=== PATIENT | male | born 1965 | race Caucasian/White ===

== ENCOUNTER 2016-09-23 04:30 | Emergency (ER) | payer BC ==
[~2016-09-23] VITALS: Ht 175.3 cm; Wt 87.0 kg
[2016-09-23 04:30] VITALS: Ht 175.3 cm; Wt 87.0 kg
[~2016-09-23 04:30] MED LIST: ALBU8.5H INH; ASPI-1116 PO; ATOR40TA PO; CARV6.25 PO; LEVO50TA4 PO; LISI5TAB PO; NITR0.4T SL; OMEP10CA4 PO; ONDA4TAB7 PO; TICA90TA PO
--- OUTSIDE RECORDS SUMMARY | 2016-09-23 04:34 | XMS REPORT | Continuity of Care Document ---
Demographics Preferred Language Unknown Marital Status Unknown Catholic Affiliation Unknown Race Unknown Ethnic Group Unknown Author Author [facility] Organization [facility] Address Unknown Phone Unavailable Allergies Active Description Code Type Severity Reaction Onset Reported/Identified Relationship to Patient Clinical Status Yes No Known Drug Allergies Drug Allergy N/A N/A 01/29/2013 Medications Problems Date Dx Coded Attending Type Code Diagnosis Diagnosed By 05/12/2012 D 493.90 ASTHMA, UNSPECIFIED 01/29/2013 Jacob Lorenz MD Final 305.1 TOBACCO USE DISORDER 01/29/2013 Jacob Lorenz MD 922.1 CONTUSION OF CHEST WALL 01/29/2013 Jacob Lorenz MD Admitting 959.11 CHEST WALL INJURY NEC 01/29/2013 Jacob Lorenz MD External E849.0 HOME ACCIDENTS 01/29/2013 Jacob Lorenz MD External E888.1 FALL STRIKE OBJECT NEC Procedures Code [place] [address] EMERGENCY DEPT VISIT BERNADETTE GONSALES MD 05/12/2012 Results Encounters ACCT No. Visit Date/Time Discharge Status Pt. Type Provider Facility Loc./Unit Complaint [id number] 05/12/2012 12:00:00 Document Registration
--- OUTSIDE RECORDS SUMMARY | 2016-09-23 04:34 | XMS REPORT | Continuity of Care Document ---
Author Author [facility] Organization [facility] Address Unknown Phone Unavailable Support Name Relationship Address Phone JAMAR BAILEY MD Caregiver [address] [place] [address] [place] [address] [employer] Next Of Kin [address] [place], [place] [id number] Insurance Providers Payer Name Policy Number Subscriber Name Relationship [facility] [id number] Christopher Gant 18 Self Problems Medical Problems Problem Onset Date Status Hypothyroid Unknown Active Atypical chest pain Unknown Active Medications Medication Dose Route Sig Days/Qty Instructions Order Date Discontinued Date Status [Otc Heartburn Pill] PO DAILY 11/18/12 Active Albuterol Sulfate 2 Puff INH Every 6 Hours 01/31/14 Active Albuterol Sulfate 2 Puff INH Every 6 Hours PRN SHORTNESS OF AIR 1 Qty 01/31/14 Active Prednisone 20 Mg PO DIRECTED 18 Qty Take 3 pills for 3 days THEN, Active Social History Social History Problem Response Recorded Date/Time Smoking Status Current every day smoker 01/31/2014 9:32am Chewing Tobacco Status No 11/18/2012 4:40am Hx Substance Use No 01/31/2014 9:32am Hx Alcohol Use Yes 01/31/2014 9:32am Query Response Start Date Stop Date Smoking Status Current every day smoker Hospital Discharge Instructions No hospital discharge instructions. Plan of Care No plan of care. Functional Status Query Response Date Recorded Physical Hygiene Self January 31, 2014 9:32am Disabilities None January 31, 2014 9:32am Devices Used None January 31, 2014 9:32am Dressing Self January 31, 2014 9:32am Ambulation Self January 31, 2014 9:32am Diet Self January 31, 2014 9:32am Mental Status Alert January 31, 2014 10:21am Disabilities None January 31, 2014 9:32am Devices Used None January 31, 2014 9:32am Physical Hygiene Self January 31, 2014 9:32am Dressing Self January 31, 2014 9:32am Ambulation Self January 31, 2014 9:32am Diet Self January 31, 2014 9:32am Allergies, Adverse Reactions, Alerts Allergen Type Severity Reaction Status Last Updated Morphine Allergy Unknown RASH Active 01/31/14 Immunizations No immunization records. Vital Signs Acute Vital Signs Vital Response Date/Time Temperature (Fahrenheit) 97.4 deg F (96.8 - 99.1) Temperature (Calculated Celsius) 36.41871 degrees C (36.0 - 37.3) Pulse Rate (adult) 77 bpm (60 - 100) Respiratory Rate 18 breaths/min (10 - 20) O2 Sat by Pulse Oximetry 98 % (90 - 100) Blood Pressure 133/91 mm Hg Height 5 ft 7 in Weight 198 lb Body Mass Index 31.0 kg/m^2 Results Test Source Date Result Interp. Ref. Range Comments Activated Partial Thromboplast Time January 31, 2014 9:21am 29.7 SEC N 24-36 Alanine Aminotransferase (ALT/SGPT) January 31, 2014 9:21am 39 U/L N 21-72 Albumin January 31, 2014 9:21am 4.5 G/DL N 3.5-5.0 Albumin/Globulin Ratio January 31, 2014 9:21am 1.3 RATIO N 1.1-2.2 Alkaline Phosphatase January 31, 2014 9:21am 97 U/L N 38-126 Anion Gap January 31, 2014 9:21am 12 MEQ/L N 5-15 Aspartate Amino Transf (AST/SGOT) January 31, 2014 9:21am 32 U/L N 17- 59 BUN/Creatinine Ratio January 31, 2014 9:21am 18 RATIO N 6-26 Basophils # (Auto) January 31, 2014 9:21am 0.1 T/MM3 N 0-0.2 Basophils (%) (Auto) January 31, 2014 9:21am 1.1 % N 0-2 Blood Urea Nitrogen January 31, 2014 9:21am 16.0 MG/DL N 9-20 Calcium Level January 31, 2014 9:21am 9.6 MG/DL N 8.4-10.2 Calculated Osmolality January 31, 2014 9:21am 276 MOSM/KG N 261-280 Carbon Dioxide Level January 31, 2014 9:21am 27 MEQ/L N 22-30 Chloride Level January 31, 2014 9:21am 104 MEQ/L N 98-107 Conjugated Bilirubin September 18, 2011 7:25am 0.00 MG/DL N 0.00-0.30 Creatinine January 31, 2014 9:21am 0.9 MG/DL N 0.8-1.5 Eosinophils # (Auto) January 31, 2014 9:21am 0.3 T/MM3 N 0-0.5 Eosinophils (%) (Auto) January 31, 2014 9:21am 3.1 % N 0-4 Globulin January 31, 2014 9:21am 3.6 G/DL N 2.4-3.6 Glucose Level January 31, 2014 9:21am 91 MG/DL N 75-110 Hematocrit January 31, 2014 9:21am 45.1 % N 41-53 Hemoglobin January 31, 2014 9:21am 14.7 GM/DL N 13.5-17.5 Lymphocytes # (Auto) January 31, 2014 9:21am 1.9 T/MM3 N 1-4.8 Lymphocytes (%) (Auto) January 31, 2014 9:21am 17.2 % L 23-45 Magnesium Level January 31, 2014 9:21am 2.0 MG/DL N 1.6-2.3 Mean Corpuscular Hemoglobin January 31, 2014 9:21am 28.2 UUG N 26-34 Mean Corpuscular Hemoglobin Concent January 31, 2014 9:21am 32.6 GM/DL N 31-37 Mean Corpuscular Volume January 31, 2014 9:21am 86.4 UM3 N 80-100 Mean Platelet Volume January 31, 2014 9:21am 9.3 UM3 L 9.4-12.4 Monocytes # (Auto) January 31, 2014 9:21am 0.6 T/MM3 N 0-0.8 Monocytes (%) (Auto) January 31, 2014 9:21am 5.8 % N 0-9.0 Neutrophils # (Auto) January 31, 2014 9:21am 7.8 T/MM3 H 1.8-7.7 Neutrophils (%) (Auto) January 31, 2014 9:21am 72.2 % H 33-66 Platelet Count January 31, 2014 9:21am 371 T/MM3 N 130-400 Potassium Level January 31, 2014 9:21am 4.1 MEQ/L N 3.6-5 Prothromb Time International Ratio January 31, 2014 9:21am 0.90 N 0.81 -1.09 THERAPUTIC RANGE=2.00-3.00 FOR ANTI-THROMBOSIS THERAPUTIC RANGE=2.50- 3.50 FOR IMPLANTED VALVE RDW Standard Deviation January 31, 2014 9:21am 50.9 FL H 36.9-50.2 Red Blood Count January 31, 2014 9:21am 5.22 M/MM3 N 4.50-5.90 Sodium Level January 31, 2014 9:21am 143 MEQ/L N 134-144 Thyroid Stimulating Hormone (TSH) January 31, 2014 9:21am 57.70 MIU/L H 0.47-4.68 Total Bilirubin January 31, 2014 9:21am 0.70 MG/DL N 0.20-1.30 Total Protein January 31, 2014 9:21am 8.1 G/DL N 6.3-8.2 Troponin I January 31, 2014 9:21am < 0.012 ng/ml 0-0.12 Unconjugated Bilirubin September 18, 2011 7:25am 0.20 MG/DL N 0.00-1.10 White Blood Count January 31, 2014 9:21am 10.8 T/MM3 N 4.5-11.0 Chemistry Specimen Hemolysis January 31, 2014 9:21am 21 N 0-25 0-25: No Hemolysis.26-70: Slight Hemolysis - can falsely elevate K and Urine Protein. 71-285: Moderate Hemolysis - can falsely elevate K, Troponin I, CA 19-9, PTH, CSF GLucose, and Urine Protein, and can falsely decrease Phenytoin. 286-999: Gross Hemolysis - can falsely elevate K, Troponin I, CA 19-9, PTH, CSF Glucose, and Urine Protine, and can falsely decrease Phenytoin. Recommend specimen recollection. Turbidity January 31, 2014 9:21am < 20 0-20 Glomerular Filtration Rate Calc January 31, 2014 9:21am 90 - Immature Granulocyte # (Auto) January 31, 2014 9:21am 0.07 T/MM3 H 0.00-0.03 Immature Granulocyte % (Auto) January 31, 2014 9:21am 0.6 % H 0.0-0.5 Icterus Index January 31, 2014 9:21am < 2 0-7 SC-Kvf-D-Type Natriuretic Peptide January 31, 2014 9:21am 26 PG/ML N 0 -175 Rule in cut points: <50 years old=450; 50-75 years old=900; >75 years old=1800; When utilizing ProBNP rule-in cut points, adjustment for impaired renal function is typically not required. Name: CHRISTOPHER GANT Unit #: [id number] : 1965 Sex: M Loc / Svc: ED DOS: 01/31/14 Signed Report #: [id number] DIAGNOSTIC IMAGING REPORT TYPE OF EXAM: CHEST 1 VIEW Dictated By: AMANDO DICKSON MD INDICATION: ITS.REASON: chest pain COMPARISON: 09/18/11 CHEST 1 VIEW: There are monitoring leads. Heart size is within a normal range. The lungs are normally expanded. Minor lower lobe fibrosis is stable. There is no evidence of a pleural effusion. IMPRESSION: No evidence of acute disease. . Procedures No known history of procedures. Encounters Encounter Location Date/Time Departed Emergency Room [facility] 01/31/14 9:06am Recent Diagnosis
--- OUTSIDE RECORDS SUMMARY | 2016-09-23 04:34 | XMS REPORT | Continuity of Care Document ---
Author Author [facility] Organization [facility] Address Unknown Phone Unavailable Support Name Relationship Address Phone [employer] Next Of Kin [address] [place] [address] Unavailable Insurance Providers Payer Name Policy Number Subscriber Name Relationship Self Pay Serene Williamson 18 Self Problems No Known Problems or Medical conditions. Family History History Response Recorded Date/Time HX of Orthopedic Surgeries Y RIGHT ACL REPAIR 11/18/12 4:40am Hx Angina Y 09/18/11 7:52am Hx Congestive Heart Failure N 09/18/11 7:52am Hx Heart Attack Y PER PT 11/18/12 4:40am Hx Hypertension N 09/18/11 7:52am Hx Cancer N 11/18/12 4:40am Social History History Response Recorded Date/Time Smoking Status Current every day smoker 11/18/12 4:40am Chewing Tobacco Status N 11/18/12 4:40am Hx Substance Use N 11/18/12 4:40am Hx Alcohol Use Y 11/18/12 4:40am Allergies, Adverse Reactions, Alerts Allergen Type Severity Reaction Last Updated morphine Allergy Unknown RASH 11/18/12 Medications Medication Dose Units Route Sig Qty Days [Otc Heartburn Pill] PO DAILY Response Recorded Date/Time Status not known Unknown Results Test Date Result Interp. Ref. Range Activated Partial Thromboplast Time September 18, 2011 7:25am 30.3 SEC N 24-36 Alanine Aminotransferase (ALT/SGPT) September 18, 2011 7:25am 27 U/L N 21-72 Albumin September 18, 2011 7:25am 4.6 G/DL N 3.5-5.0 Albumin/Globulin Ratio September 18, 2011 7:25am 1.4 RATIO N 1.1-2.2 Alkaline Phosphatase September 18, 2011 7:25am 87 U/L N 38-126 Anion Gap September 18, 2011 7:25am 12 MEQ/L N 5-15 Aspartate Amino Transf (AST/SGOT) September 18, 2011 7:25am 25 U/L N 17-59 BUN/Creatinine Ratio September 18, 2011 7:25am 20 RATIO N 6-26 Basophils # (Auto) September 18, 2011 7:25am 0.1 T/MM3 N 0-0.2 Basophils (%) (Auto) September 18, 2011 7:25am 1.0 % N 0-2 Blood Urea Nitrogen September 18, 2011 7:25am 14.0 MG/DL N 9-20 Calcium Level September 18, 2011 7:25am 9.3 MG/DL N 8.4-10.2 Calculated Osmolality September 18, 2011 7:25am 284 MOSM/KG H 261-280 Carbon Dioxide Level September 18, 2011 7:25am 27 MEQ/L N 22-30 Chloride Level September 18, 2011 7:25am 107 MEQ/L N 98-107 Conjugated Bilirubin September 18, 2011 7:25am 0.00 MG/DL N 0.00-0.30 Creatinine September 18, 2011 7:25am 0.7 MG/DL L 0.8-1.5 Eosinophils # (Auto) September 18, 2011 7:25am 0.2 T/MM3 N 0-0.5 Eosinophils (%) (Auto) September 18, 2011 7:25am 1.8 % N 0-4 Globulin September 18, 2011 7:25am 3.4 G/DL N 2.4-3.6 Glucose Level September 18, 2011 7:25am 131 MG/DL H 75-110 Hematocrit September 18, 2011 7:25am 48.5 % N 41-53 Hemoglobin September 18, 2011 7:25am 15.8 GM/DL N 13.5-17.5 Lymphocytes # (Auto) September 18, 2011 7:25am 1.9 T/MM3 N 1-4.8 Lymphocytes (%) (Auto) September 18, 2011 7:25am 17.6 % L 23-45 Mean Corpuscular Hemoglobin September 18, 2011 7:25am 28.5 UUG N 26-34 Mean Corpuscular Hemoglobin Concent September 18, 2011 7:25am 32.6 GM/DL N 31-37 Mean Corpuscular Volume September 18, 2011 7:25am 87.4 UM3 N 80-100 Mean Platelet Volume September 18, 2011 7:25am 9.8 UM3 N 9.4-12.4 Monocytes # (Auto) September 18, 2011 7:25am 0.9 T/MM3 H 0-0.8 Monocytes (%) (Auto) September 18, 2011 7:25am 8.0 % N 0-9.0 Neutrophils # (Auto) September 18, 2011 7:25am 7.5 T/MM3 N 1.8-7.7 Neutrophils (%) (Auto) September 18, 2011 7:25am 71.0 % H 33-66 Platelet Count September 18, 2011 7:25am 344 T/MM3 N 130-400 Potassium Level September 18, 2011 7:25am 3.7 MEQ/L N 3.6-5 Prothromb Time International Ratio September 18, 2011 7:25am 0.92 N 0.86-1.10 RDW Standard Deviation September 18, 2011 7:25am 47.8 FL N 36.9-50.2 Red Blood Count September 18, 2011 7:25am 5.55 M/MM3 N 4.50-5.90 Sodium Level September 18, 2011 7:25am 146 MEQ/L H 134-144 Total Bilirubin September 18, 2011 7:25am 0.50 MG/DL N 0.20-1.30 Total Protein September 18, 2011 7:25am 8.0 G/DL N 6.3-8.2 Troponin I September 18, 2011 7:25am < 0.012 ng/ml 0-0.12 Unconjugated Bilirubin September 18, 2011 7:25am 0.20 MG/DL N 0.00-1.10 White Blood Count September 18, 2011 7:25am 10.6 T/MM3 N 4.5-11.0 Glomerular Filtration Rate Calc September 18, 2011 7:25am 121 - Immature Granulocyte # (Auto) September 18, 2011 7:25am 0.06 T/MM3 H 0.00-0.03 Immature Granulocyte % (Auto) September 18, 2011 7:25am 0.6 % H 0.0-0.5 CI-Pwb-W-Type Natriuretic Peptide September 18, 2011 7:25am 20 PG/ML N 0-175 Encounters Encounter Location Date/Time Departed Emergency Room [facility] 11/18/12 4:32am
--- NOTE | 2016-09-23 04:35 | NUR ---
EKG EKG SHOWING STEMI. DR ROWLAND IS GIVEN EKG
--- OUTSIDE RECORDS SUMMARY | 2016-09-23 04:35 | XMS REPORT | Continuity of Care Document ---
Author Author [facility] Organization [facility] Address Unknown Phone Unavailable Support Name Relationship Address Phone SANTO KHAN MD Caregiver [address] [place] [address] [place] [address] [employer] Next Of Kin [address] [place] [address] Insurance Providers Payer Name Policy Number Subscriber Name Relationship [facility] [id number] Christopher Williamson 18 Self Problems Medical Problems Problem Onset Date Status Hypothyroid Unknown Active Atypical chest pain Unknown Active Hypothyroid Unknown Active Contusion of left hand Unknown Active Contusion of left hand Unknown Active Medications Medication Dose Route Sig Days/Qty Instructions Order Date Discontinued Date Status [Otc Heartburn Pill] PO DAILY 11/18/12 08/01/14 Discontinued Albuterol Sulfate 2 Puff INH Every 6 Hours 01/31/14 Active Albuterol Sulfate 2 Puff INH Every 6 Hours PRN SHORTNESS OF AIR 1 Qty 01/31/14 08/01/14 Discontinued Prednisone 20 Mg PO DIRECTED 18 Qty Take 3 pills for 3 days THEN, 08/01/14 Discontinued Social History Social History Problem Response Recorded Date/Time Chewing Tobacco Status No 11/18/2012 4:40am Hx Substance Use No 08/01/2014 10:48am Hx Alcohol Use Yes 08/01/2014 10:48am Tobacco Usage smoke 02/07/2014 8:15pm Query Response Start Date Stop Date Smoking Status Current every day smoker Hospital Discharge Instructions No hospital discharge instructions. Plan of Care No plan of care. Functional Status Query Response Date Recorded Physical Hygiene Self August 01, 2014 10:48am Disabilities None August 01, 2014 10:48am Devices Used None August 01, 2014 10:48am Dressing Self August 01, 2014 10:48am Ambulation Self August 01, 2014 10:48am Diet Self August 01, 2014 10:48am Mental Status Alert Oriented August 01, 2014 10:48am Disabilities None August 01, 2014 10:48am Devices Used None August 01, 2014 10:48am Physical Hygiene Self August 01, 2014 10:48am Dressing Self August 01, 2014 10:48am Ambulation Self August 01, 2014 10:48am Diet Self August 01, 2014 10:48am Allergies, Adverse Reactions, Alerts Allergen Type Severity Reaction Status Last Updated Morphine Allergy Unknown RASH Active 01/31/14 Immunizations Name Given Type Hx Influenza Vaccination No Historical Hx Influenza Vaccination No Historical Vital Signs Acute Vital Signs Vital Response Date/Time Temperature (Fahrenheit) 97.6 deg F (96.8 - 99.1) Temperature (Calculated Celsius) 36.85916 degrees C (36.0 - 37.3) Pulse Rate (adult) 82 bpm (60 - 100) Respiratory Rate 18 breaths/min (10 - 20) O2 Sat by Pulse Oximetry 93 % (90 - 100) Blood Pressure 162/97 mm Hg Height 5 ft 10 in Weight 199 lb Body Mass Index 28.0 kg/m^2 Results Test Source Date Result Interp. [...] January 31, 2014 9:21am < 2 0-7 CO-Ell-L-Type Natriuretic Peptide January 31, 2014 9:21am 26 PG/ML N 0 -175 Rule in cut points: <50 years old=450; 50-75 years old=900; >75 years old=1800; When utilizing ProBNP rule-in cut points, adjustment for impaired renal function is typically not required. Name: CHRISTOPHER WILLIAMSON Unit #: [id number] : 1965 Sex: M Loc / Svc: ED DOS: Signed Report #: [id number] DIAGNOSTIC IMAGING REPORT TYPE OF EXAM: HAND LEFT 3 VIEW Dictated By: SASHA SAUCEDO MD Indication: ITS.REASON: smashed hand at work HAND LEFT 3 VIEW Comparison: None Findings: There is no acute fracture, dislocation or malalignment identified. Chronic appearing mild deformity of the fifth metacarpal. Impression: No acute osseous abnormality. . Procedures No known history of procedures. Encounters Encounter Location Date/Time Departed Emergency Room [facility] 08/01/14 10:25am Recent Diagnosis
[2016-09-23] MEDS: NITROGLYCERIN 0.4 MG SUBLINGUAL TABLET SL PRN ×2 (04:43→04:54)
[2016-09-23] MEDS ORDERED: HEPARIN 20,000 units/D5W 500ml 500 ML IV SCH (04:45)
[2016-09-23] MEDS ORDERED: HEPARIN 2000 UNIT/2 ML IV ONE (04:45)
[2016-09-23] MEDS ORDERED: ASPIRIN 81 MG CHEWABLE TABLET PO ONE (04:45)
--- NOTE | 2016-09-23 04:49 | NUR ---
[facility] AR[facility]IVES
--- NOTE | 2016-09-23 04:51 | ERPDOC ---
Departure Disposition Decision Date: September 23, 2016 Disposition Decision Time: 04:50 Disposition: 02 TO [facility] Impression Impression Impression: Primary Impression: STEMI (ST elevation myocardial infarction) Involved coronary artery: unspecified coronary artery Qualified Codes: I21.3 - ST elevation (STEMI) myocardial infarction of unspecified site Severity: Severe Condition: Improved Seen By: Physician only Referrals: LORETTA HDEZ MD (Family) Problems/Meds/Labs Reviewed?: Yes Medications reviewed and manag: Yes Follow up care ordered?: Yes Mental Status: Alert Critical Care Note Total Time (mins): 35 Critical Care Spent: [id number] care of pt, Reviewing test results, Discuss the case w/staff, Documenting the MR, Discussion w/ family/DPOA During this visit the pt was: Critically Ill, At Risk of Deterioration HPI - Chest Pain General Chief Complaint: Chest Pain Stated Complaint: CHEST PAINS Time Seen by Provider: 04:31 Source: patient Exam Limitations: no limitations HPI - Chest Pain Initial Comments Severe substernal chest pain similar to his prior OH, began at 3:30 this morning. Patient took home nitroglycerin without relief. Occurred At: home Location: substernal Chest Pain Radiation: no radiation Nitro Today/Relief: provided by ED Aspirin Treatment Today: 81 mg x 4, provided by ED Hx of Similar Symptoms: Yes Allergies: Coded Allergies: morphine (Verified Allergy, Unknown, RASH, 08/14/15) Viagra/ED med in past 36 hrs: No Past History Past Medical History Metabolic: hypothyroidism Cardiac: CAD, OH Respiratory: COPD GI: GERD Surgical History General: hernia Cardiac: cardiac cath, cardiac stent Joint: knee Family History Family PMH: FOUND: CAD Vaccines Hx Influenza Vaccination: No Hx Pneumococcal Vaccination: No Social History # of Packs/Tins per Day: 1/2 Sexuality: female partner Review of Systems Constitutional Constitutional: DENIES: appetite decrease, appetite increase, chills, dizziness , fever, weakness ENMT Ears: DENIES: pain Hearing: DENIES: hearing loss, tinnitus Balance: DENIES: vertigo Mouth/Throat: DENIES: change in swallowing, change in voice, hoarsness, painful swallowing, sore throat Cardiovascular Cardiac: chest pain, DENIES: dyspnea on exertion Rhythm/Rate: DENIES: irregular beat, palpitations, tachycardia Vascular: DENIES: pedal edema Pulmonary Respiratory: DENIES: cough, dyspnea, pleuritic chest pain GI Upper Abdomen: DENIES: dysphagia, heartburn/indigestion, nausea, pain, vomiting Lower Abdomen: DENIES: blood in stool, constipation, diarrhea, pain General: DENIES: burning, dysuria, frequency, pain, urgency Musculoskeletal General: DENIES: cramps, joint pain, joint swelling, pain, weakness Integumentary Skin: DENIES: rash, sores Neurological General: DENIES: headache, numbness, tingling, vertigo, weakness Psychiatric Psychiatric: DENIES: anxiety, depression, nervousness Physical Exam General General Nourishment: well nourished, well developed, appears stated age Distress Description Patient appears diaphoretic and in distress secondary to pain Vitals and Pain Weight: Kilograms: Height (feet): 5 Height (inches): 8 Triage Pain Scale: Normal Exams: Head: Normocephalic w/o trauma Eyes: Pupils are PERRLA w/ EOMI, No scleral icterus, irritation, or foreign bodies noted ENMT: No facial trauma, nasal exudates, pharyngeal erythema, or exudates are noted Neck: Full range of motion, without adenopathy, JVD, bruits or thyromegaly Chest/Resp: Clear all [place], with good airflow, and symmetry bilaterally CV: Regular rate and rhythm, without murmur or gallop, Pulses 2+ all extremities, capillary refill, <2 seconds all ext., no pedal edema noted Abdomen: Bowel sounds positive, soft, non-tender, non-distended, no hepatosplenomegaly, masses or bruits noted Lymphatic: No lymphadenopathy, or lymphedema noted Musculoskeletal: No tenderness, or deformity noted, good range of motion, all extremities Integumentary: No rashes, hives, or bruising noted, hair and nails, without abnormality Neurologic: Patient is alert, and oriented, cranial nerves, motor/sensory/ cerebellar, exams w/o gross deficits, to observation Psychiatric: Patient exhibits, appropriate attention, emotion and affect Integumentary (brief) Integumentary Brief: FOUND: pink, NOT FOUND: dry (patient appears somewhat pale and diaphoretic), warm Progress Results/Orders Orders Procedure Category Date Status Time Cbc W/Auto LAB 09/23/16 Transmitted Diff-Reflex Manual 04:40 Bmp - Basic Metabolic LAB 09/23/16 Transmitted Panel 04:40 Probnp LAB 09/23/16 Transmitted 04:40 Troponin I W LAB 09/23/16 Transmitted Hemolysis Index 04:40 INR LAB 09/23/16 Transmitted 04:40 EKG EKG 09/23/16 Logged 04:40 Chest 1 View RAD 09/23/16 Logged 04:40 Iv Lock (Ed Only) EDM 09/23/16 Transmitted 04:40 Heparin (Heparin) PHA 09/23/16 Transmitted 04:45 Aspirin (Asa) PHA 09/23/16 Transmitted 04:45 Nitroglycerin PHA 09/23/16 Transmitted (Nitrostat) 04:45 Heparin Iv Drip PHA 09/23/16 Transmitted 04:45 Ns 1000 Ml (Er Use PHA 09/23/16 Verified Only) 05:00 Progress Progress EKG shows a 1.[address] segment elevation in 23 and similar elevation in aVF, with moderate change in the ST segment in V5 and V6 compared to old EKGs. This is consistent with acute OH/STEMI, inferior. 911 EMS transport was immediately paged, as well as Dr. Mj Barker is accepting the patient to be [facility] for transfer, patient is given aspirin, nitroglycerin for pain, and heparin bolus/drip started ER. CARMINA ROWLAND MD September 23, 2016 04:50
[2016-09-23 04:55] LABS: BASOPHILS # (AUTO) 0.1 T/MM3 (0-0.2); BASOPHILS % (AUTO) 0.9 % (0-2); EOSINOPHILS # (AUTO) 0.3 T/MM3 (0-0.5); EOSINOPHILS % (AUTO) 2.9 % (0-4); HCT - HEMATOCRIT 44.4 % (41-53); HGB - HEMOGLOBIN 14.1 GM/DL (13.5-17.5); IMMATURE GRANULOCYTE # (AUTO) 0.07 T/MM3 (0.00-0.03); IMMATURE GRANULOCYTE % (AUTO) 0.7 % (0.0-0.5); LYMPHOCYTES # (AUTO) 1.9 T/MM3 (1-4.8); LYMPHOCYTES % (AUTO) 18.4 % (23-45); MEAN CORPUSCULAR HGB 27.3 UUG (26-34); MEAN CORPUSCULAR HGB CONC(MCHC 31.8 GM/DL (31-37); MEAN PLATELET VOLUME 9.3 UM3 (9.4-12.4); MONOCYTES # (AUTO) 0.8 T/MM3 (0-0.8); NEUTROPHILS #(AUTO)-ABSOLUTE 7.3 T/MM3 (1.8-7.7); NEUTROPHILS % (AUTO) 69.1 % (33-66); RED BLOOD COUNT 5.16 M/MM3 (4.50-5.90); WBC - WHITE BLOOD COUNT 10.5 T/MM3 (4.5-11.0)
--- NOTE | 2016-09-23 04:56 | NUR ---
REPORT CALLED REPORT TO EFRAIN MASON RN IN AT [facility]
--- OUTSIDE RECORDS SUMMARY | 2016-09-23 04:57 | XMS REPORT | Continuity of Care Document ---
Author Author [facility] Organization [facility] Address Unknown Phone Unavailable Support Name Relationship Address Phone [employer] Next Of Kin [address] [place] [address] Unavailable Insurance Providers Payer Name Policy Number [...] 18, 2011 7:25am 0.6 % H 0.0-0.5 EN-Ygx-E-Type Natriuretic Peptide September 18, 2011 7:25am 20 PG/ML N 0-175 Encounters Encounter Location Date/Time Departed Emergency Room [facility] 11/18/12 4:32am
--- OUTSIDE RECORDS SUMMARY | 2016-09-23 04:57 | XMS REPORT | Continuity of Care Document ---
Author Author [facility] Organization [facility] Address Unknown Phone Unavailable Support Name Relationship Address Phone JAMAR BAILEY MD Caregiver [address] [place] [address] [place] [address] [employer] Next Of Kin [address] [place], [place] [id number] Insurance Providers Payer Name Policy Number Subscriber Name Relationship [facility] [id number] Christopher Gant 18 Self Problems Medical Problems [...] F (96.8 - 99.1) Temperature (Calculated Celsius) 36.42415 degrees C (36.0 - 37.3) Pulse Rate [...] January 31, 2014 9:21am < 2 0-7 AN-Woj-L-Type Natriuretic Peptide January 31, 2014 9:21am 26 PG/ML N 0 -175 Rule in cut points: <50 years old=450; 50-75 years old=900; >75 years old=1800; When utilizing ProBNP rule-in cut points, adjustment for impaired renal function is typically not required. Name: CHRISTOPHER GANT Unit #: [id number] : 1965 Sex: M Loc / Svc: ED DOS: 01/31/14 Signed Report #: [id number] DIAGNOSTIC IMAGING REPORT TYPE OF EXAM: CHEST [...] Encounters Encounter Location Date/Time Departed Emergency Room [facility] 01/31/14 9:06am Recent Diagnosis
--- OUTSIDE RECORDS SUMMARY | 2016-09-23 04:57 | XMS REPORT | Continuity of Care Document ---
Author Author [facility] Organization [facility] Address Unknown Phone Unavailable Support Name Relationship Address Phone SANTO KHAN MD Caregiver [address] [place] [address] [place] [address] [employer] Next Of Kin [address] [place] [address] Insurance Providers Payer Name Policy Number Subscriber Name Relationship [facility] [id number] Christopher Williamson 18 Self Problems Medical Problems [...] F (96.8 - 99.1) Temperature (Calculated Celsius) 36.29907 degrees C (36.0 - 37.3) Pulse Rate [...] January 31, 2014 9:21am < 2 0-7 UM-Juo-A-Type Natriuretic Peptide January 31, 2014 9:21am 26 PG/ML N 0 -175 Rule in cut points: <50 years old=450; 50-75 years old=900; >75 years old=1800; When utilizing ProBNP rule-in cut points, adjustment for impaired renal function is typically not required. Name: CHRISTOPHER WILLIAMSON Unit #: [id number] : 1965 Sex: M Loc / Svc: ED DOS: Signed Report #: [id number] DIAGNOSTIC IMAGING REPORT TYPE OF EXAM: HAND [...] Encounters Encounter Location Date/Time Departed Emergency Room [facility] 08/01/14 10:25am Recent Diagnosis
--- OUTSIDE RECORDS SUMMARY | 2016-09-23 04:57 | XMS REPORT | Continuity of Care Document ---
Demographics Preferred Language Unknown Marital Status Unknown Faith Affiliation Unknown Race Unknown Ethnic Group Unknown Author Author [facility] Organization [facility] Address Unknown Phone Unavailable Allergies Active Description [...] Procedures Code Description [place] [address] EMERGENCY DEPT VISIT BERNADETTE GONSALES MD 05/12/2012 Results Encounters ACCT No. Visit Date/Time Discharge Status Pt. Type Provider Facility Loc./Unit Complaint [id number] 05/12/2012 12:00:00 Document Registration
[2016-09-23 04:58] VITALS: BP 142/90; PULSE 83; RESP 13; TEMP 97.8; O2SAT 93
--- NOTE | 2016-09-23 04:58 | NUR ---
TRANSFER COMPLETE EMS HAS BEEN GIVEN REPORT AND THE PT IS ON EMS COT. EMS WILL RESUME CARE
[2016-09-23] MEDS ORDERED: NORMAL SALINE 1,000 ML IV ONE (05:00)
[2016-09-23 05:05] LABS: INR 0.95 (0.76-1.04); PROTHROMBIN TIME 10.4 SEC (9.31-12.49)
[2016-09-23 05:11] LABS: ANION GAP 12 MEQ/L (5-15); BUN/CREATININE RATIO 19 RATIO (6-26); CALCIUM 9.5 MG/DL (8.4-10.2); CHLORIDE 109 MEQ/L (98-107); CO2 - CARBON DIOXIDE 26 MEQ/L (22-30); CREATININE 0.8 MG/DL (0.8-1.5); GLOMERULAR FILTRATION RATE 102; GLUCOSE 126 MG/DL (75-110); POTASSIUM 3.9 MEQ/L (3.6-5); SODIUM 147 MEQ/L (134-144)
--- NOTE | 2016-09-23 05:20 | NUR ---
FAX FAXED ALL RECORDS TO [facility]NALY[facility]
[2016-09-23 05:23] LABS: PROBNP 26 PG/ML (0-175)
--- NOTE | 2016-09-23 05:25 | NUR ---
REPORT ORAL JEAN FROM [facility] CALLED FOR REPORT. REPORT IS GIVEN. INFORMED HER ALL RECORDS WERE FAXED.
== END 2016-09-23 04:58 | disposition short-term general hospital (02) ==
LOC: ED 04:30
DX: I21.3 ST elevation (STEMI) myocardial infarction of unspecified site (principal); I25.10 Atherosclerotic heart disease of native coronary artery without angina pectoris; I25.2 Old myocardial infarction; F17.200 Nicotine dependence, unspecified, uncomplicated; Z95.5 Presence of coronary angioplasty implant and graft
CPT/HCPCS: 80048; 83880; 84484; 85025; 85610; 93005; 96374; 99285; J1644